=== PATIENT | female | born 1945 | race Caucasian/White ===

== ENCOUNTER → 2016-04-25 | Outpatient (CLI) | payer MEDICARE, OTHER ==
[~2016-04-25] MED LIST: ALLEGRA180 MG PO; ANTIVERT **IA12.5 MG PO; ASPIRIN (CHILDR81 MG PO; BENICAR40 MG PO; BIOTIN2500 MCG PO; DELTASONE5 MG PO; FISH OIL 1,0001 EAC4 PO; FOLIC ACID 40400 MCG PO; JANUVIA 100 MG100 MG PO; LASIX20 MG PO; LEVOTHROID(SYN75 MCG PO; LIPITOR10 MG PO; METHOTREXATE (2.5 MG PO; MIRALAX17 GM PO; PROTONIX40 MG PO; TENORMIN100 MG PO; TRULICITY0.75 MG/0. SUB-Q; VITAMIN B-12500 MCG PO; VITAMIN C1000 MG PO; VITAMIN E400 UNI2 PO; ZETIA10 MG PO; ZINCATE (50 MG220 MG PO; ZYLOPRIM300 MG PO
== END | disposition disaster alternative care site (69) ==
LOC: GBCOE 09:22
DX: Z12.31 Encounter for screening mammogram for malignant neoplasm of breast (principal)
CPT/HCPCS: G0202